=== PATIENT | female | born 1945 | race Caucasian/White ===

== ENCOUNTER → 2017-08-08 | Outpatient (CLI) | payer MEDICARE ==
[~2017-08-08] MED LIST: CALC600T; CHOL2000; CLN.1T; ESTR0.7510; HYDR12.570; LISI20TA; PARO20TA57; PRAV40TA
--- NOTE | 2017-08-08 13:36 | Diagnostic Imaging Report ---
CLINICAL INDICATION: Patient with carotid stenosis. COMPARISON: Ultrasound of the carotid arteries dated 11/03/2015. EXAMINATION: Real-time carotid Doppler duplex imaging is performed bilaterally. Peak systolic velocity, ICA/CCA peak systolic ratio, spectral analysis, and vascular morphology are studied. FINDINGS: ARTERY VELOCITY Right Left CCA 0.83 m/s 1.01 m/s ICA 1.03 m/s 0.99 m/s ECA 1.06 m/s 0.97 m/s ICA/CCA 1.2 1.0 VERT.ART Antegrade Antegrade There is no significant grayscale evidence of vascular stenosis. IMPRESSION: There is no grayscale or Doppler evidence of significant vascular stenosis. Dictated by: Dictated on workstation # [id number]
== END ==
LOC: RAD 11:56
PROVIDERS: ATTEND Family Medicine
DX: I65.23 Occlusion and stenosis of bilateral carotid arteries (principal)
CPT/HCPCS: 93880

== ENCOUNTER → 2018-05-16 | Outpatient (CLI) | payer MEDICARE ==
--- NOTE | 2018-05-16 11:29 | Diagnostic Imaging Report ---
PROCEDURE: US carotid duplex, bilateral. TECHNIQUE: Multiple real-time grayscale images were obtained over the carotid arteries in various projections, bilaterally. Additional spectral analysis and color Doppler duplex images were also obtained. INDICATION: Carotid artery stenosis. Parameters based on the consensus panel Prasad-Scale and Doppler ultrasound criteria published January 2003, Radiology, Volume 229. DOPPLER (peak systolic velocity M/S Right Left CCA .85 1.0 ICA Proximal .78 .48 ICA Mid .75 .48 ICA Distal .81 .81 RATIO .95 .68 ECA 1.2 .80 VERT .66 .82 FINDINGS: The previous carotid Doppler exam of 08/08/2017 failed to show any sign of a hemodynamically significant stenosis of the common or internal carotid arteries. On this exam, there is mild soft plaque formation in both carotid systems. The flow velocities still fail to show any sign of a hemodynamically significant stenosis of the common or internal carotid arteries. Both vertebral arteries were noted and there was antegrade flow bilaterally. IMPRESSION: There is still no evidence for hemodynamically significant stenosis of either carotid system. Dictated by: Dictated on workstation # [id number]
--- NOTE | 2018-05-16 19:29 | Diagnostic Imaging Report ---
EXAMINATION: Digital mammogram bilateral screening with 3D tomosynthesis and computer-aided detection (CAD) system. INDICATION: Screening. COMPARISON: This study was compared to the prior exams of 12/15/2012 and 05/05/2012. At this time, there are no current complaints. FINDINGS: The fibroglandular tissue in both breasts is heterogeneously dense. This does limit the sensitivity of this exam. In the interval since the prior study, the patient has undergone a stereotactic biopsy of the right breast. There is a stereotactic clip in the mid lateral aspect of the breast. The overall appearance of the breasts has not changed significantly otherwise. There is no primary or secondary sign of malignancy noted. IMPRESSION: 1. There is no evidence of malignancy. 2. There has been an interval stereotactic biopsy of the right breast. 3. The patient should have her annual bilateral screening mammogram on schedule in May of 2019. ACR BI-RADS Category 1: Negative. Result letter will be mailed to the patient. Note: At least 10% of breast cancer is not imaged by mammography. Dictated by: Dictated on workstation # [id number]
== END ==
LOC: RAD 08:35
PROVIDERS: ATTEND Family Medicine
DX: Z12.31 Encounter for screening mammogram for malignant neoplasm of breast (principal); I65.29 Occlusion and stenosis of unspecified carotid artery; R92.8 Other abnormal and inconclusive findings on diagnostic imaging of breast
CPT/HCPCS: 77067; 93880

== ENCOUNTER 2018-06-10 16:00 | Outpatient (CLI) | payer MEDICARE ==
[~2018-06-10] VITALS: Ht 157.5 cm; Wt 70.8 kg
[2018-06-11] MEDS ORDERED: TRIA1TAB3 PO (14:45)
[2018-06-11] MEDS ORDERED: ESTR0.5T PO (14:45)
[2018-06-11] MEDS ORDERED: FENO134C PO (14:45)
[2018-06-11] MEDS ORDERED: LEVO75TA PO (14:45)
[2018-06-11] MEDS ORDERED: PARO20TA5 PO (14:45)
[2018-06-11] MEDS ORDERED: METO-395 PO (14:45)
[2018-06-11] MEDS ORDERED: PRAV40TA2 PO (14:45)
== END 2018-06-10 16:30 | disposition home or self-care (01) ==
LOC: PREOP 16:00
PROVIDERS: ATTEND Surgery
DX: Z01.818 Encounter for other preprocedural examination (principal)

== ENCOUNTER 2018-06-16 06:55 | Day surgery (SDC) | payer MEDICARE ==
[~2018-06-16] VITALS: Ht 157.5 cm; Wt 70.8 kg
[~2018-06-16 06:55] MED LIST changes: +ESTR0.5T PO; +FENO134C PO; +LEVO75TA PO; +METO-395 PO; +PARO20TA5 PO; +PRAV40TA2 PO; +TRIA1TAB3 PO
[2018-06-16] MEDS ORDERED: LACTATED RINGERS 1,000 ML IV ONE (07:04)
[2018-06-16] MEDS ORDERED: PROPOFOL INJECTION 50 ML IV ONE (07:10)
[2018-06-16] MEDS ORDERED: LIDOCAINE PF 2% 5 ML (XYLOCAINE) VIAL ONE (07:10)
[2018-06-16] MEDS ORDERED: MIDAZOLAM 2 MG/2 ML (VERSED) VIAL ONE (07:10)
[2018-06-16] MEDS ORDERED: meTOprolol 5 MG/5 ML (LOPRESSOR) VIAL ONE (07:18)
[2018-06-16] MEDS ORDERED: LACTATED RINGERS 1,000 ML IV STA (07:31)
[2018-06-16 07:35] VITALS: BP 140/84
--- NOTE | 2018-06-16 08:20 | Progress Note-Pre Operative ---
Pre-Operative Progress Note H&P Reviewed The H&P was reviewed, patient examined and no changes noted. Time Seen by Provider: 08:11 Date H&P Reviewed: Jun 16, 2018 Time H&P Reviewed: 08:12 Pre-Operative Diagnosis: screening colonoscopy DL CRUZ DO Jun 16, 2018 08:20
--- NOTE | 2018-06-16 08:41 | Progress Note-Post Operative ---
Post-Operative Progess Note Surgeon (s)/Rail Director (s) Surgeon DL CRUZ DO Rail Director: none Pre-Operative Diagnosis screening colonoscopy Post-Operative Diagnosis Internal Hemorrhoids Procedure & Operative Findings Date of Procedure 06/16/18 Procedure Performed/Findings Colonoscopy Anesthesia Type IV sedation by AVIATION MAINTENANCE INSTRUCTOR Estimated Blood Loss Estimated blood loss (mL): none Specimens/Packing Specimens Removed none DL CRUZ DO Jun 16, 2018 08:41
--- NOTE | 2018-06-16 08:42 | Endoscopy Discharge Instruct ---
Endo Procedure/Findings Findings 1.: Internal Hemorrhoids Discharge Instructions - Activity: You might feel a little sleepy until tomorrow. This is due to the medicine you received to relax you. Until tomorrow, you should: NOT drive a car, operate machinery or power tools. NOT drink any alcoholic beverages. NOT make any important decisions or sign importortant papers. Do not return to work until tomorrow, unless otherwise instructed. Resume previous activities tomorrow. Diet: Start by taking liquids. If you tolerate liquids, advance to solid food. Make an appointment to see me in one week Instructions: 1.: Colonscopy in 10 years Notify Physician - If you experience excessive bleeding, unusual abdominal pain, fever, or chest pain, contact your doctor immediately. Follow-Up: - I have received and understand the above instructions and will call my doctor if I have any further questions. Patient Signature Date Nurse Signature Other (Relationship) DL CRUZ DO Jun 16, 2018 08:42
[2018-06-16 08:55] VITALS: BP 140/84
[2018-06-16 09:25] VITALS: BP 143/79
[2018-06-16 09:36] VITALS: BP 143/79
--- NOTE | 2018-06-16 14:32 | Anesthesia-General Post-Op ---
MAC Patient Condition Mental Status/LOC: Same as Preop Cardiovascular: Satisfactory Nausea/Vomiting: Absent Respiratory: Satisfactory Pain: Controlled Complications: Absent Post Op Complications Complications None Follow Up Care/Instructions Patient Instructions None needed. Anesthesiology Discharge Order Discharge Order Patient is doing well, no complaints, stable vital signs, no apparent adverse anesthesia problems. No complications reported per nursing. JANINA KUMARI CRNA Jun 16, 2018 14:32
--- NOTE | 2018-06-17 04:52 | OPERATIVE REPORT ---
DATE OF SERVICE: 06/16/2018 PREOPERATIVE DIAGNOSIS: Screening colonoscopy. POSTOPERATIVE DIAGNOSIS: Internal hemorrhoids. PROCEDURE: Colonoscopy. SURGEON: Alvino Machado DO. SHELTERED WORKSHOP EXECUTIVE DIRECTOR: None. ANESTHESIA: IV sedation by the WAFER PRODUCTION WORKER. SPECIMENS: None. BLOOD LOSS: None. FLUIDS: Per anesthesia. POSTOPERATIVE CONDITION: Stable. INDICATION FOR PROCEDURE: The patient is a 73-year-old female who has never had a colonoscopy, needed one for screening. FINDINGS: The patient had some very small internal hemorrhoids, but no other obvious pathology seen. PROCEDURE NOTE: After informed consent was obtained, the patient was brought to the endoscopy suite and placed in the left lateral decubitus position. She was administered IV sedation by WAFER PRODUCTION WORKER who then monitored her vitals the entire time, heart rate, blood pressure and pulse ox and the scope was inserted up from the rectum all the way to 150 cm to the cecum, took a picture of appendiceal orifice, noted the ileocecal valve and then slowly withdrew the scope insufflating to look circumferentially at the nicholas looking at the cecum up the ascending colon to the hepatic flexure, then down the transverse colon, the splenic flexure, into the descending colon and finally down to the sigmoid and into the rectum, retroflexed in the rectal vault, saw some minimal internal hemorrhoids, took a picture of this and then removed the scope. The patient tolerated the procedure and she was recovered in the endoscopy suite. Job ID: [id number] DocumentID: [id number] Dictated Date: 06/16/2018 18:30:34 Psychiatric Lpn Date: 06/17/2018 04:52:22 Dictated By: ALVINO MACHADO DO
== END 2018-06-16 09:35 | disposition home or self-care (01) ==
LOC: ENDO 06:55
PROVIDERS: ATTEND Surgery
DX: Z12.11 Encounter for screening for malignant neoplasm of colon (principal); K64.8 Other hemorrhoids; I10 Essential (primary) hypertension; F41.9 Anxiety disorder, unspecified; F32.9 Major depressive disorder, single episode, unspecified; Z86.73 Personal history of transient ischemic attack (TIA), and cerebral infarction without residual deficits; Z79.899 Other long term (current) drug therapy

== ENCOUNTER → 2020-05-31 | Outpatient (CLI) | payer MEDICARE ==
[~2020-05-31] MED LIST changes: +ASPI-999 PO; -METO-395 PO; +MTP100TCR PO; +MV-M1TAB57 PO
--- NOTE | 2020-05-31 13:33 | Diagnostic Imaging Report ---
INDICATION: Routine screening. COMPARISON: 05/16/2018. TECHNIQUE: 2D and 3D bilateral screening mammography was performed with CAD. FINDINGS: Both breasts are heterogeneously dense, limiting the sensitivity of mammography. A biopsy marker clip in the right breast is again noted. Overall parenchymal pattern is stable. No mass or malignant appearing microcalcifications are seen. There are scattered benign calcifications present. The axillae are unremarkable. IMPRESSION: No mammographic features suspicious for malignancy are identified. ACR BI-RADS Category 2: Benign findings. Result letter will be mailed to the patient. Note: At least 10% of breast cancer is not imaged by mammography. Dictated by: Dictated on workstation # [id number]
== END ==
LOC: RAD 10:54
PROVIDERS: ATTEND Nurse Practitioner Family
DX: Z12.31 Encounter for screening mammogram for malignant neoplasm of breast (principal)
CPT/HCPCS: 77063; 77067

== ENCOUNTER 2020-06-06 05:36 | Outpatient (RCR) | payer MEDICARE ==
[2020-06-01 10:14] VITALS: BP 155/74
[2020-06-01 11:07] LABS: BASOPHILS % (AUTO) 1 % (0-10); EOSINOPHILS # (AUTO) 0.1 10^3/uL (0.0-0.3); EOSINOPHILS % (AUTO) 3 % (0-10); HEMATOCRIT 38 % (35-52); LYMPHOCYTES # (AUTO) 0.9 10^3/uL (1.0-4.0); LYMPHOCYTES % (AUTO) 31 % (12-44); MEAN CORPUSCULAR HEMOGLOBIN 29 pg (25-34); MEAN CORPUSCULAR HGB CONC 34 g/dL (32-36); MEAN CORPUSCULAR VOLUME 86 fL (80-99); MEAN PLATELET VOLUME 10.4 fL (9.0-12.2); MONOCYTES # (AUTO) 0.3 10^3/uL (0.0-1.0); MONOCYTES % (AUTO) 10 % (0-12); NEUTROPHILS # (AUTO) 1.7 10^3/uL (1.8-7.8); NEUTROPHILS % (AUTO) 56 % (42-75); PLATELET COUNT 213 10^3/uL (130-400)
[2020-06-01 11:22] LABS: PROTHROMBIN TIME PATIENT 13.3 SEC (12.2-14.7)
[2020-06-01 11:29] LABS: ALBUMIN 4.1 GM/DL (3.2-4.5); BILIRUBIN,TOTAL 0.5 MG/DL (0.1-1.0); CREATININE SERUM 1.03 MG/DL (0.60-1.30); TOTAL PROTEIN 6.8 GM/DL (6.4-8.2)
[2020-06-01 11:31] LABS: BILIRUBIN,URINE NEGATIVE (NEGATIVE); CLARITY,URINE CLEAR; COLOR,URINE YELLOW; GLUCOSE, URINE (UA) NEGATIVE (NEGATIVE); KETONES,URINE NEGATIVE (NEGATIVE); LEUKOCYTE ESTERASE ,URINE 2+ (NEGATIVE); NITRITE,URINE NEGATIVE (NEGATIVE); PROTEIN,URINE NEGATIVE (NEGATIVE)
--- NOTE | 2020-06-01 11:34 | Diagnostic Imaging Report ---
INDICATION: Preop knee surgery. COMPARISON: 10/28/2015. FINDINGS: PA and lateral views show the lungs to be clear. The heart is not enlarged. No pneumothorax or pleural effusion. No bony abnormalities. IMPRESSION: Normal PA and lateral chest. Dictated by: Dictated on workstation # [id number]
[2020-06-01 11:41] LABS: ERYTHROCYTE SEDIMENTATION RATE 8 MM/HR (0-30)
[2020-06-01 11:46] LABS: BACTERIA,URINE FEW /HPF; RBC,URINE 0-2 /HPF
[~2020-06-06] VITALS: Ht 158.5 cm; Wt 82.3 kg
== END 2020-06-06 13:17 | disposition home or self-care (01) ==
LOC: PREOP 05:36
PROVIDERS: ATTEND Orthopaedic Surgery
DX: Z01.812 Encounter for preprocedural laboratory examination (principal); M17.11 Unilateral primary osteoarthritis, right knee
CPT/HCPCS: 36415; 71046; 80053; 81000; 85025; 85610; 85652; 86850; 86900; 86901; 87081; 87088; 87635; 93005

== ENCOUNTER 2020-06-08 06:04 | Inpatient (IN) | payer MEDICARE ==
--- NOTE | 2020-06-01 20:09 | HISTORY AND PHYSICAL ---
DATE OF SERVICE: ADMISSION HISTORY AND PHYSICAL DATE OF ADMISSION: 06/08/2020. This will be for inpatient admission on 06/08/2020 for right total knee arthroplasty. The patient will require regular inpatient admission for comorbidities, pain management, and need for physical therapy. HISTORY OF PRESENT ILLNESS: The patient is a 75-year-old female with complaints of progressively worsening right knee pain. Radiographs reveal severe medial and patellofemoral arthrosis with complete loss of joint space. She underwent an arthroscopy in the past. She has also undergone injections, but reports increasing pain and activity limitations and because of this, has elected to proceed with total knee arthroplasty. REVIEW OF SYSTEMS: No chest pain, no shortness of breath, and no dysuria. PAST MEDICAL HISTORY: Hypertension, hyperlipidemia, and hypothyroidism. PAST SURGICAL HISTORY: Hysterectomy, cholecystectomy, cleft palate, eye and left knee arthroscopy. FAMILY HISTORY: Noncontributory. PRIMARY CARE PROVIDER: Dr. Ramirez. MEDICATIONS: Levothyroxine, paroxetine, fenofibrate, triamterene, metoprolol, pravastatin, estradiol, aspirin and hydrocodone. ALLERGIES: No known drug allergies. SOCIAL HISTORY: The patient drinks alcohol occasionally. Denies tobacco use. PHYSICAL EXAMINATION: GENERAL: The patient is a well-developed, well-nourished, in no acute distress. HEENT: Normocephalic and atraumatic. Pupils are equal, round, and reactive to light. Oropharynx is clear. NECK: Supple and no lymphadenopathy. LUNGS: Clear to auscultation bilaterally. HEART: Regular rate and rhythm. ABDOMEN: Soft, nontender, and nondistended. EXTREMITIES: The right knee demonstrates varus alignment. She ambulates with an antalgic gait. She is tender along her medial joint line. She has pain medially with Timmy's. She has patellofemoral crepitus and pain with patellar loading. Range of motion is 0/2/120. IMPRESSION: Right knee osteoarthritis, unresponsive to conservative measures. PLAN: Right total knee arthroplasty. The risks, benefits, options, ramifications and recovery were discussed at length with the patient. She understands and wishes to proceed. Job ID: [id number] DocumentID: [id number] Dictated Date: 05/30/2020 16:40:59 Dialysis Nurse Date: 05/30/2020 17:55:39 Dictated By: ROB JUDD MD
[2020-06-08] VITALS (14 sets, daily range): BP systolic 91–187; BP diastolic 54–96
[~2020-06-08] VITALS: Ht 158 cm; Wt 82.3 kg
[2020-06-08] MEDS ORDERED: CEFUROXIME INJECTION 1,500 MG in WATER (STERILE) FOR INJECTION 15 ML IV ONE (06:15)
[2020-06-08] MEDS ORDERED: fentaNYL INJ 100 MCG/2 ML AMP ONE (06:27)
[2020-06-08] MEDS ORDERED: MIDAZOLAM 2 MG/2 ML (VERSED) VIAL ONE (06:27)
[2020-06-08] MEDS ORDERED: proPOfol 200 MG/20 ML (DIPRIVAN) VIAL IV ONE (06:58)
[2020-06-08] MEDS ORDERED: ONDANSETRON 4 MG/2 ML (SDV) Z0FRAN ONE (06:58)
[2020-06-08] MEDS ORDERED: SEVOFLURANE (ULTANE) 15 ML INHAL SOLN ONE ×5 (06:58→09:00)
[2020-06-08] MEDS ORDERED: LIDOCAINE PF 2% 5 ML (XYLOCAINE) VIAL ONE ×2 (06:58)
[2020-06-08] MEDS ORDERED: BUPIVACAINE 0.5% 30 ML (SENSORCAINE) VIAL ONE (06:58)
[2020-06-08] MEDS: LACTATED RINGERS 1,000 ML IV PRN ×2 (07:03→07:40)
[2020-06-08] MEDS ORDERED: ONDANSETRON 4 MG/2 ML (SDV) Z0FRAN IVP PRN ×2 (07:15→09:30)
[2020-06-08] MEDS ORDERED: ACETAMINOPHEN 325 MG TABLET PO PRN (07:15)
[2020-06-08] MEDS ORDERED: diphenhydrAMINE 50 MG/ML INJ (BENADRYL) IVP PRN (07:15)
--- NOTE | 2020-06-08 07:28 | Progress Note-Pre Operative ---
Pre-Operative Progress Note H&P Reviewed The H&P was reviewed, patient examined and no changes noted. Date Seen by Provider: Jun 08, 2020 Time Seen by Provider: 07:20 Date H&P Reviewed: Jun 08, 2020 Time H&P Reviewed: 07:11 Pre-Operative Diagnosis: right knee primary osteoarthritis ROB JUDD MD Jun 08, 2020 07:28
--- NOTE | 2020-06-08 07:29 | Progress Note-Post Operative ---
Post-Operative Progess Note Surgeon (s)/Financial Auditor (s) Surgeon ROB JUDD MD Financial Auditor: Дмитрий Licona Pre-Operative Diagnosis right knee primary osteoarthritis Post-Operative Diagnosis right knee primary osteoarthritis Procedure & Operative Findings Date of Procedure 06/08/20 Procedure Performed/Findings right total knee arthroplasty Anesthesia Type GETA Estimated Blood Loss Estimated blood loss (mL): minimal Specimens/Packing Specimens Removed none Packing: none ROB JUDD MD Jun 08, 2020 07:29
[2020-06-08] MEDS ORDERED: INTRA-ARTICULAR IU ONE ×5 (07:30)
--- NOTE | 2020-06-08 07:32 | D/C HH Face to Face Order ---
D/C Face to Face Orders Reconcile Patient Problems Problems Reviewed?: Yes Instructions for Patient Via [facility], Patient Instructions/FollowUp: three weeks Physician to follow Patient: three weeks Discharge Diet for Home: Regular Diet Patient Data-Allergies,Ht & Wt Patient Allergies: Coded Allergies: No Known Drug Allergies (Verified , 01/10/09) Height (Feet): 5 Height (Inches): 2.00 Weight (Pounds): 156 Weight (Ounces): 0.0 Home Health Need/Face to Face Date of Face to Face: Jun 08, 2020 Clinical Findings: Instability, Muscle weakness, Pain with ambulation, Unsteady gait I have seen Pt [id number]: Yes Discharged To: Home Diagnosis/Conditions: right total knee arthroplasty Patient is Homebound due to: Muscle weakness, Pain w/ambulation Homebound Status Due to the above stated illness, injury or surgical procedure (medical condition or diagnosis) and associated clinical findings, the patient is homebound because of his/her inability to leave home except with aid of a supportive device and/or person AND leaving the home requires a considerable and taxing effort or is medically contraindicated. Pt req the following assistanc: [facility] Nursing Orders Home Health Services Order: Physical Therapy-Evaluate & Treat DC right knee daquan and apply steri strips 06/22/20 Home Health Infusion Therapy Line Start Date: Jun 08, 2020 Therapy Orders Therapy Orders: Physical Therapy, PT to assess for OT Therapy Specific Orders: Eval assistive deivces, Teach enviro modifications/safety, Gait training, Increase strength/endurance, Provider maintenance therapy, Restore ROM Certify Stmt I certify that this patient is under my care and that I, a nurse practitioner or a physician; a physiotherapy assistant working with me, had a face to face encounter that - meets the physician face to face encounter requirements with this patient as dated. ROB JUDD MD Jun 08, 2020 07:32
[2020-06-08] MEDS ORDERED: TRANEXAMIC ACID 100 MG/ML 10 ML INJECTION ONE (07:37)
[2020-06-08] MEDS ORDERED: RT-ALBUTEROL SULF 2.5 MG/3 ML PRE-MIX VIAL ONE (09:05)
[2020-06-08] MEDS ORDERED: LABETALOL HCL 20 MG/4 ML VIAL ONE (09:17)
[2020-06-08] MEDS ORDERED: LABETALOL HCL 100 MG/20 ML VIAL IV ONE (09:30)
[2020-06-08] MEDS ORDERED: HYDROmorphone 2 MG/ML VIAL (DILAUDID) IV ONE (09:30)
[2020-06-08] MEDS ORDERED: hydrALAZINE (APESOLINE) 20 MG/ML VIAL IV ONE (09:30)
[2020-06-08] MEDS ORDERED: morphine INJ 10 MG/ML 1ML (SYR OR VIAL) IVP ONE (09:30)
[2020-06-08] MEDS ORDERED: fentaNYL INJ 100 MCG/2 ML AMP IVP ONE (09:30)
[2020-06-08] MEDS ORDERED: MEPERIDINE (DEMEROL) INJ 50 MG/ML IVP ONE (09:30)
[2020-06-08] MEDS ORDERED: RT-ALBUTEROL/IPRATROPIUM 3 ML (DUONEB) VIAL INH ONE (09:30)
--- NOTE | 2020-06-08 09:39 | Diagnostic Imaging Report ---
INDICATION: Status post right knee replacement COMPARISON: None. FINDINGS: Two views of the right knee were obtained. Expected postoperative changes are seen from right knee total arthroplasty. Femoral and tibial components appear well-seated. There is no evidence of periprosthetic fracture. There is a small amount of subcutaneous emphysema in the soft tissues over the knee. Skin daquan are seen centrally over the anterior aspect of the knee. No unexpected radiopaque foreign bodies are identified. IMPRESSION: Expected postsurgical changes from right knee total arthroplasty, as described above. No unexpected radiopaque foreign bodies. Dictated by: Dictated on workstation # [id number]
--- NOTE | 2020-06-08 10:30 | Progress Note ---
Standard Progress Note Progress Notes/Assess & Plan Date Seen by a Provider: Jun 08, 2020 Time Seen by a Provider: 09:30 Progress/Assessment & Plan post op check no complaints radiographs--HW well positioned without fracture RLE--2 plus DP pulse with brisk cap refill. Intact DF and PF of toes and ankle with intact sensation to light touch throughout s/p RTKA mobilize as able ROB JUDD MD Jun 08, 2020 10:30
[2020-06-08] MEDS: NS IV 1000 ML 1,000 ML IV SCH ×2 (11:05→21:28)
[2020-06-08] MEDS: SENNA W/DOCUSATE (SENOKOT S) TABLET PO SCH ×2 (11:24→21:36)
--- NOTE | 2020-06-08 12:08 | OPERATIVE REPORT ---
DATE OF SERVICE: 06/08/2020 PREOPERATIVE DIAGNOSIS: Right knee primary osteoarthritis. POSTOPERATIVE DIAGNOSIS: Right knee primary osteoarthritis. PROCEDURE: Right total knee arthroplasty. SURGEON: Eduardo Judd MD VP OF GLOBAL MARKETING: Дмитрий Licona, who assisted throughout the procedure and closed the incision. ANESTHESIA: General endotracheal by Carey Salamanca CRNA. TOURNIQUET TIME: Approximately 60 minutes at 300 mmHg. ESTIMATED BLOOD LOSS: Minimal. DRAINS: None. COMPLICATIONS: None. POSTOPERATIVE PLAN: Routine total knee arthroplasty protocol. MATERIALS: Microport cemented size 3 femur, cemented size 3 tibia with a 12 mm insert and cemented size 32 patellar button. The patient was transferred to the recovery room awake and in stable condition. STATEMENT OF MEDICAL NECESSITY: The patient is a 75-year-old female with complaints of progressively worsening right knee pain. She has undergone treatment with injections, anti-inflammatories, rest and arthroscopy without relief. Radiographs revealed severe medial patellofemoral joint space narrowing. Due to functional impairment and failure to improve with conservative measures, the patient elected to proceed with surgical intervention. DESCRIPTION OF PROCEDURE: After risks and benefits of procedure were discussed and questions were answered, an informed consent was signed and placed on chart. The operative site was confirmed in the preoperative holding area initialed by the surgeon. The patient was then transferred to the operating room and after adequate levels of general endotracheal anesthetic were obtained, a timeout was called, confirming the operative site. The right lower extremity was prepped and draped in the usual sterile fashion with the leg elevated and the knee flexed. Tourniquet was inflated to 300 mmHg. A standard anterior approach was utilized. Hemostasis was obtained with cautery. Medial parapatellar arthrotomy was performed leaving 1 cm cuff on the patella for later reattachment. A portion of the fat pad was resected. A subperiosteal release was performed in the proximal medial tibia being careful to stay on the bony surface. The ACL was resected. Intramedullary guide was passed and the distal cutting block was placed. Distal cut was made and the femur was sized to a size 3. The 3 cutting block was placed parallel to the epicondylar axis and cuts were made from posterior to anterior. The subperiosteal release was then carefully performed in the posterior distal femur, being careful to stay on the bony surface. The intramedullary guide was then passed into the tibia. Cutting block was placed and drop tyler transected the intermalleolar axis and the cut was made. The 3 baseplate was placed. The drop tyler transected the intermalleolar axis. This was then prepared with a drill and keel punch. The trochlear cut was then made after placing the femoral trial and the patella was prepared by using the freehand technique and resecting 10 mm off the undersurface. The peg guide was placed and peg holes were drilled. The trials were inserted with 12 mm insert. Full extension was easily obtained, 120 degrees of flexion with gravity was easily obtained. The patella tracked well. There was no anterior/posterior laxity in flexion or extension. There was a trace varus laxity in full extension. No valgus laxity. The trials were removed. The joint was irrigated with pulse lavage. The periarticular block was placed in the posterior capsule, medial and lateral retinaculum extensor mechanism, subcutaneous tissues. The bone ends were irrigated and dried. Tibial baseplate was cemented into position. Excessive cement was removed. The superior surface was irrigated and dried. The polyethylene insert was placed. The distal femur was irrigated and dried and the femoral prosthesis was cemented into position. Excessive cement was removed. The undersurface of patella was irrigated and dried and the patellar button was cemented into position. Excessive cement was removed. The knee was held in full extension until the cement had cured. Once the cement had cured, the knee was taken through range of motion. Full extension was easily obtained degrees of flexion with gravity was easily obtained. The patella tracked well. There was no anterior/posterior or medial/lateral laxity in flexion or extension. The joint was further irrigated with pulse lavage. Arthrotomy was closed with #2 Tevdek in [id number] interrupted fashion. The knee was flexed. Patella tracked well with no undue tension noted at the repair site. Subcutaneous tissues were irrigated using a total of 6 liters throughout the procedure, 0 Vicryl was used to deep subcutaneous tissue, 2-0 Vicryl for the superficial subcutaneous tissue, daquan used on the skin. A soft dressing was applied. The tourniquet was deflated. The patient was transferred to the recovery room awake and in stable condition. Job ID: [id number] DocumentID: [id number] Dictated Date: 06/08/2020 09:10:30 Otolaryngology Rep Date: 06/08/2020 12:07:05 Dictated By: EDUARDO JUDD MD
[2020-06-08] MEDS: CEFUROXIME INJECTION 750 MG in WATER (STERILE) FOR INJECTION 10 ML IV SCH ×2 (15:22→23:38)
--- NOTE | 2020-06-08 15:40 | Physical Therapy Evaluation ---
PT Evaluation-General Medical Diagnosis Admission Date Jun 08, 2020 at 06:04 Medical Diagnosis: s/p (R) tka Onset Date: Jun 08, 2020 Therapy Diagnosis Therapy Diagnosis: decreased functional mobility Height/Weight Height (Feet): 5 Height (Inches): 2.00 Weight (Pounds): 156 Weight (Ounces): 0.0 Precautions Precautions/Isolations: Fall Prevention, Standard Precautions Weight Bear Status Right Lower Extremity: Right Weight Bearing/Tolerated Left Lower Extremity: Left Full Weight Bearing Referral Physician: FARAZ Warren Reason for Referral: Evaluation/Treatment Medical History Pertinent Medical History: HTN, Hypothroidism Additional Medical History hyperlipidemia, cholecystectomy, cleft palate Sx, eye Sx, (L) knee scope Current History Pt underwent (R) TKA this date. Reviewed History: Yes Social History Home: Single Level Current Living Status: Spouse Entry Into Home: Stairs Without Railing PT Steps Into Home: 2 Prior Prior Level of Function SCALE: Activities may be completed with or without assistive devices. 1-Ygrqetfwwf-epzloau completes the activity by him/herself with no assistance from a helper. 5-Set-up or Clean-up Assistance-helper sets up or cleans up; patient completes activity. [place] assists only prior to or following the activity. 4-Supervision or Touching Assistance-helper provides verbal cues and/or touching/steadying and/or contact guard assistance as patient completes activity. Assistance may be provided throughout the activity or intermittently. 3-Partial/Moderate Assistance-helper does LESS THAN HALF the effort. [place] lifts, holds or supports trunk or limbs, but provides less than half the effort. 2-Substantial/Maximal Assistance-helper does MORE THAN HALF the effort. [place] lifts or holds trunk or limbs and provides more than half the effort. 6-Oxfsapvoc-xjmzfa does ALL the effort. Patient does none of the effort to complete the activity. Or, the assistance of 2 or more helpers is required for the patient to complete the activity. If activity was not attempted, code reason: 7-Patient Refused. 9-Not Applicable-not attempted and the patient did not perform the activity before the current illness, exacerbation or injury. 10-Not Attempted due to Environmental Limitations-(lack of equipment, weather restraints, etc.). 88-Not Attempted due to Medical Conditions or Safety Concerns. Bed Mobility: 6 Transfers (B,C,W/C): 6 Gait: 6 Stairs: 6 Wheelchair Mobility: 9 Indoor Mobility (Ambulation): Independent Stairs: Independent Prior Devices Use: None PT Evaluation-Current Subjective Pt in bed, agreeable. No pain reported upon PT arrival. Pt/Family Goals Home Objective Patient Orientation: Person, Place, Time, Situation Attachments: SCD's, Polar Pack, IV ROM/Strength ROM Upper Extremities WFL for mobility ROM Lower Extremities (L) grossly WFL for functional mobility. (R) knee grossly +10-90 degrees Strength Upper Extremities WFL for mobility Strength Lower Extremities (+) SLR with lag on (R) (L) grossly WFL for mobility Integumentary/Posture Integumentary See nurses' notes Sensory Vision: Functional Hearing: Functional Transfers Roll Left to Right (QC): 6 Sit to Lying (QC): 6 Lying to Sitting/Side of Bed(Q: 6 Sit to Stand (QC): 4 Stood EOB with CGA to FWW. 3 sidesteps to HOB with CGA Gait Does the Patient Walk?: Yes Mode of Locomotion: Walk Anticipated Mode of Locomotion: Walk Wheelchair Training Does the Pt Use a Wheelchair?: No Balance Sitting Static: Normal Sitting Dynamic: Normal Standing Static: Good Standing Dynamic: Fair Treatment Eval. CPM placed 0-45 degrees, good fit achieved. Assessment/Needs Pt would benefit from skilled PT to improve (R) knee functional ROM and strength and increase (I) with functional mobility for safe return home. 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 Time Frame: Jun 15, 2020 Roll Left & Right (QC): 6 Sit to Lying (QC): 6 Lying-Sitting on Side/Bed(QC): 6 Sit to Stand (QC): 6 Chair/Bpt-ri-Ekgnh Xfer(QC): 6 Toilet Transfer (QC): 6 Car Transfer (QC): 6 Does the Patient Walk: Yes Walk 10 feet (QC): 6 Walk 50ft with 2 Turns (QC): 6 Walk 150 ft (QC): 6 Walking 10ft on Uneven Surface: 6 1 Step (curb) (QC): 6 4 Steps (QC): 4 12 Steps (QC): 9 Picking up an Object (QC): 6 Does the Pt use WC or Scooter?: No Wheel 50 feet with 2 turns (QC: 9 Type: N/A Wheel 150 feet: 9 Type: N/A PT LTGs established to allow safe return home with spouse PT Plan Problem List Problem List: Activity Tolerance, Functional Strength, Safety, Balance, Gait, Transfer, Bed Mobility, ROM Treatment/Plan Treatment Plan: Continue Plan of Care Treatment Plan: Bed Mobility, Education, Functional Activity April, Functional Strength, Gait, Safety, Therapeutic Exercise, Transfers Treatment Duration: Jun 15, 2020 Frequency: 11 times per week Estimated Hrs Per Day: .5 hour per day Patient and/or Family Agrees t: Yes Safety Risks/Education Patient Education: Reviewed Precautions, Correct Positioning Teaching Recipient: Patient Teaching Methods: Discussion Response to Teaching: Verbalize Understanding PT POC, positioning to promote TKE, use of CPM Discharge Recommendations Therapy Discharge Recommendati: Home & Family, Post Acute PT Barriers to Progress None Time/GCodes Time In: 1329 Time Out: 1350 Total Billed Treatment Time: 21 Total Billed Treatment 1, EVLOWC, CPM, PADS LIONEL MCQUEEN DPRaza Jun 08, 2020 15:40
[2020-06-08] MEDS: oxyCODONE/APAP 5/325MG (PERCOCET 5) TABLET PO PRN (17:00)
[2020-06-08] MEDS: morphine PCA 100 MG/100 ML BAG IV PRN ×3 (19:55→21:28)
[2020-06-09 00:51] VITALS: BP 131/62
[2020-06-09] MEDS: NS IV 1000 ML 1,000 ML IV SCH ×2 (01:14→13:41)
[2020-06-09 04:44] VITALS: BP 124/60
[2020-06-09] MEDS: MULTIVIT W/MINERALS TAB (THERAGRAN M) PO SCH (05:37)
[2020-06-09 06:11] LABS: HEMOGLOBIN 9.6 g/dL (11.5-16.0); MEAN PLATELET VOLUME 10.4 fL (9.0-12.2); WHITE BLOOD COUNT 6.8 10^3/uL (4.3-11.0)
--- NOTE | 2020-06-09 06:49 | Anesthesia-General Post-Op ---
General Patient Condition Mental Status/LOC: Same as Preop Cardiovascular: Satisfactory Nausea/Vomiting: Absent Respiratory: Satisfactory Pain: Controlled Complications: Absent Post Op Complications Complications None Follow Up Care/Instructions Patient Instructions None needed. Anesthesia/Patient Condition Patient Condition Patient is doing well, no complaints, stable vital signs, no apparent adverse anesthesia problems. No complications reported per nursing. JANNIA KUMARI CRNA Jun 09, 2020 06:49
[2020-06-09 08:00] VITALS: BP 129/75
--- NOTE | 2020-06-09 08:02 | Progress Note ---
Standard Progress Note Progress Notes/Assess & Plan Date Seen by a Provider: Jun 09, 2020 Time Seen by a Provider: 08:01 Progress/Assessment & Plan post op check no complaints radiographs--HW well positioned without fracture RLE--2 plus DP pulse with brisk cap refill. Intact DF and PF of toes and ankle with intact sensation to light touch throughout s/p RTKA mobilize as able Final Diagnosis patient is doing well Vital Signs Date Time Temp Pulse Resp B/P (MAP) Pulse Ox O2 Delivery O2 Flow Rate FiO2 06/09/20 04:44 36.3 73 18 124/60 (81) 95 Nasal Cannula 2.00 06/09/20 00:51 36.6 80 18 131/62 (85) 96 Nasal Cannula 2.00 06/08/20 20:35 Nasal Cannula 2.00 06/08/20 20:35 Nasal Cannula 2.00 06/08/20 20:24 36.4 69 18 109/56 (73) 94 Nasal Cannula 2.00 06/08/20 19:55 36.0 06/08/20 18:05 95 Nasal Cannula 2.00 06/08/20 18:00 89 Room Air 06/08/20 16:30 36.3 77 20 145/62 (89) 95 Room Air 06/08/20 15:37 Room Air 06/08/20 12:00 36.2 79 16 141/66 (91) 100 Nasal Cannula 2.00 06/08/20 10:45 77 141/64 (89) 95 Nasal Cannula 2.00 06/08/20 10:20 36.5 77 16 91/54 (66) 97 Nasal Cannula 2.00 06/08/20 10:10 36.2 20 133/77 (95) 96 Nasal Cannula 2 06/08/20 10:10 Nasal Cannula 2 06/08/20 10:00 18 142/80 (100) 96 Nasal Cannula 2 06/08/20 09:55 Nasal Cannula 3 06/08/20 09:50 14 147/83 (104) 96 Nasal Cannula 3 06/08/20 09:40 16 155/78 (103) 94 OxyMask 4 06/08/20 09:40 OxyMask 4 06/08/20 09:30 16 169/83 (111) 97 OxyMask 8 06/08/20 09:20 OxyMask 10 06/08/20 09:20 14 187/92 (123) 91 OxyMask 10 06/08/20 09:10 36.1 16 180/96 (124) 94 OxyMask 15 06/08/20 09:09 36.1 16 180/96 (124) 94 OxyMask 15 06/08/20 09:09 OxyMask 15 I & O 06/09/20 06:59 Intake Total 2915 ml Output Total 410 ml Balance 2505 ml Laboratory Tests Test 06/09/20 05:58 Range/Units White Blood Count 6.8 4.3-11.0 10^3/uL Red Blood Count 3.25 L 3.80-5.11 10^6/uL Hemoglobin 9.6 L 11.5-16.0 g/dL Hematocrit 28 L 35-52 % Mean Corpuscular Volume 87 80-99 fL Mean Corpuscular Hemoglobin 30 25-34 pg Mean Corpuscular Hemoglobin Concent 34 32-36 g/dL Red Cell Distribution Width 13.1 10.0-14.5 % Platelet Count 175 130-400 10^3/uL Mean Platelet Volume 10.4 9.0-12.2 fL Creatinine 1.11 0.60-1.30 MG/DL RLE--dressing intact. No calf tenderness. neg \Buck's able to perform SLR s/p RTKA doing very well PT/OT likely DC tomorrow ROB JUDD MD Jun 09, 2020 08:02
[2020-06-09] MEDS: oxyCODONE/APAP 5/325MG (PERCOCET 5) TABLET PO PRN ×7 (08:20→22:33)
[2020-06-09] MEDS: ASPIRIN E.C. 81 MG (ECOTRIN) TAB PO SCH (08:20)
[2020-06-09] MEDS: ENOXAPARIN 30 MG/0.3 ML (LOVENOX) SYR SC SCH ×2 (08:20→19:47)
[2020-06-09] MEDS: SENNA W/DOCUSATE (SENOKOT S) TABLET PO SCH ×2 (08:20→19:47)
[2020-06-09] MEDS ORDERED: LEVOTHYROXINE 75 MCG (LEVOTHROID) TABLET PO NR (08:45)
--- NOTE | 2020-06-09 09:29 | Progress Note - Hospitalist ---
PARTH HADDAD MED STUDENT 06/09/20 0929: Subjective HPI/CC On Admission Date Seen by Provider: Jun 09, 2020 Time Seen by Provider: 08:15 Fwup s/p right total knee arthroplasty Subjective/Events-last exam Pt resting comfortably in bed with ice machine running over right knee. She denies shortness of breath and is pain free at rest. Pt states pain increases when she ambulates but it is tolerable. She had urinary retention last night requiring straight cath but is able to go on her own today. Discussed possibility of being discharged today or tomorrow vs going to rehab pending her strength and comfort level with returning home. Objective Exam Vital Signs Vital Signs Date Time Temp Pulse Resp B/P (MAP) Pulse Ox O2 Delivery O2 Flow Rate FiO2 06/09/20 08:07 Nasal Cannula 2.00 06/09/20 08:00 36.2 87 20 129/75 (93) 93 Capillary Refill : Less Than 3 Seconds General Appearance: No Apparent Distress, WD/WN Respiratory: Chest Non Tender, Lungs Clear, Normal Breath Sounds, No Accessory Muscle Use, No Respiratory Distress Cardiovascular: Regular Rate, Rhythm, No Edema, No Gallop Gastrointestinal: Normal Bowel Sounds, Non Tender Extremity: Normal Capillary Refill, Non Tender, No Calf Tenderness, No Pedal Edema, Other (ice machine on R knee; distal pulses 2/4 b/l) Neurologic/Psychiatric: Alert, Oriented x3, Normal Mood/Affect Skin: Normal Color, Warm/Dry Results/Procedures Lab Laboratory Tests 06/09/20 05:58 Patient resulted labs reviewed. Assessment/Plan Assessment and Plan Assess & Plan/Chief Complaint 1. S/p right total knee arthroplasty -Continue pain medications as needed and ice machine -Ambulate and pt as much as tolerated -Encouraged use of I/S -Lovenox DVT prophylaxis -Potentially d/c tomorrow 2. HTN -Restart Metoprolol 100 mg PO 3. Hypothyroidism -Restart Levothyroxine 75 mcg 4. Hyperlipidemia -On Fenofibrate and Pravastatin at home; not restarted yet 5. Anxiety and depression -Restart Paroxetine 20 mg Diagnosis/Problems Diagnosis/Problems (1) Osteoarthritis of right knee Status: Chronic (2) HTN (hypertension) Status: Chronic (3) Hyperlipidemia Status: Chronic (4) Hypothyroidism Status: Chronic (5) S/P arthroscopy of right knee Status: Acute (6) Anxiety and depression Status: Chronic PHI GARDNER DO 06/09/201907: Supervisory-Addendum Brief Verification & Attestation Participated in pt care: history, physical Personally performed: exam, supervision of care Care discussed with: Medical Student Procedures: n/a Results interpretation: Verified all documentation This is a 75 yo female with a history of HTN, Hyperlipidemia, Anxiety and previous TIA who underwent right TKA by Dr. Hatch yesterday. I am asked to consult for medical management. As above, the patient is resting comfortably in bed with pain well controlled. She is in good spirits and hopeful that she can go home tomorrow but she her will likely not be able to assist her at h ome very well due to his own health issues. We did discuss possible rehab if she felt that was necessary but she will see how she does today and plans to discuss that more with me tomorrow. Her right knee wound is dry with a dressing and CARMEN hose in place. She has no calf pain or swelling. Assessment, care and plans as above. PARTH HADDAD MED STUDENT Jun 09, 2020 09:29 PHI GARDNER DO Jun 09, 2020 19:08
--- NOTE | 2020-06-09 09:41 | Physical Therapy Daily Note ---
PT Daily Note-Current Subjective Patient willingly consented to PT. Patient rates R knee pain 5/10. Appearance Patient left sitting upright in chair, with call button within reach and tray table positioned in front. Mental Status Patient Orientation: Normal For Age Attachments: Polar Pack, IV Transfers SCALE: Activities may be completed with or without assistive devices. 9-Ieierdoxjl-stjvhvw completes the activity by him/herself with no assistance from a helper. 5-Set-up or Clean-up Assistance-helper sets up or cleans up; patient completes activity. [place] assists only prior to or following the activity. 4-Supervision or Touching Assistance-helper provides verbal cues and/or touching/steadying and/or contact guard assistance as patient completes activity. Assistance may be provided throughout the activity or intermittently. 3-Partial/Moderate Assistance-helper does LESS THAN HALF the effort. [place] lifts, holds or supports trunk or limbs, but provides less than half the effort. 2-Substantial/Maximal Assistance-helper does MORE THAN HALF the effort. [place] lifts or holds trunk or limbs and provides more than half the effort. 3-Fbhsvpzbf-ycbrup does ALL the effort. Patient does none of the effort to complete the activity. Or, the assistance of 2 or more helpers is required for the patient to complete the activity. If activity was not attempted, code reason: 7-Patient Refused. 9-Not Applicable-not attempted and the patient did not perform the activity before the current illness, exacerbation or injury. 10-Not Attempted due to Environmental Limitations-(lack of equipment, weather restraints, etc.). 88-Not Attempted due to Medical Conditions or Safety Concerns. Roll Left & Right (QC): 6 Sit to Lying (QC): 6 Lying to Sitting/Side of Bed(Q: 6 Sit to Stand (QC): 4 Chair/Cou-bj-Wsudo Xfer(QC): 4 SBA x1 with sit <-> stand transfer. Patient able to bear weight through R leg without difficulty. Weight Bearing Right Lower Extremity: Right Weight Bearing/Tolerated Left Lower Extremity: Left Full Weight Bearing Gait Training Does the Patient Walk?: Yes Distance: 300' Walk 10 feet (QC): 4 Walk 50 ft with 2 Turns(QC): 4 Walk 150 ft (QC): 4 Gait Assistive Device: FWW SBA x1 utilized with ambulation, secondary to first time patient ambulated. Patient was very steady with gait, showed reciprocal gait pattern and did not demonstrate antalgic gait pattern. Wheelchair Training Does the Pt Use a Wheelchair?: No Exercises Supine Ex: Glut sets, Heel Slides, Straight leg raise Supine Reps: 15 Seated Therapy Exercises: Ankle pumps, Long arc quads Seated Reps: 15 Assessment Current Status: Excellent Progress Patient demonstrates fluid motion with knee mobility with no hesitation to movement secondary to pain. Patient will benefit from continued PT to improve functional mobility to maintain safety and obtain PLOF when returning home with . Plan dismissal in a.m. to home with spouse and home health therapy. 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 Goals Time Frame: Jun 15, 2020 Roll Left & Right (QC): 6 Sit to Lying (QC): 6 Lying-Sitting on Side/Bed(QC): 6 Sit to Stand (QC): 6 Chair/Pxk-xf-Teucc Xfer(QC): 6 Toilet Transfer (QC): 6 Car Transfer (QC): 6 Does the Patient Walk: Yes Walk 10 feet (QC): 6 Walk 50ft with 2 Turns (QC): 6 Walk 150 ft (QC): 6 Walking 10ft on Uneven Surface: 6 1 Step (curb) (QC): 6 4 Steps (QC): 4 12 Steps (QC): 9 Picking up an Object (QC): 6 Does the Pt use WC or Scooter?: No Wheel 50 feet with 2 turns (QC: 9 Type: N/A Wheel 150 feet: 9 Type: N/A PT Plan Problem List Problem List: Balance, Gait, Transfer Treatment/Plan Treatment Plan: Continue Plan of Care Treatment Plan: Bed Mobility, Education, Functional Activity April, Functional Strength, Gait, Safety, Therapeutic Exercise, Transfers Treatment Duration: Jun 15, 2020 Frequency: 11 times per week Estimated Hrs Per Day: .5 hour per day Patient and/or Family Agrees t: Yes Discharge Recommendations Therapy Discharge Recommendati: Home & Family, Post Acute PT Time/GCodes Time In: 809 Time Out: 08 Total Billed Treatment Time: 25 Total Billed Treatment 1 visit: GT: 10' EX: 15' LATASHA VÁSQUEZ PT Jun 09, 2020 09:40
[2020-06-09] MEDS: PARoxetine 20 MG (PAXIL) TAB PO SCH (09:46)
--- NOTE | 2020-06-09 11:03 | Occupational Therapy Eval ---
OT Evaluation-General/PLF Medical Diagnosis Admission Date Jun 08, 2020 at 06:04 Medical Diagnosis: s/p (R) tka Onset Date: Jun 08, 2020 Therapy Diagnosis Therapy Diagnosis: weakness Height/Weight Height (Feet): 5 Height (Inches): 2.00 Weight (Pounds): 156 Weight (Ounces): 0.0 Precautions Precautions/Isolations: Fall Prevention, Standard Precautions Referral Physician: FARAZ Warren Referral Reason: Evaluation/Treatment Medical History Pertinent Medical History: HTN, Hypothroidism Additional Medical History cholecystecotomy, cleft palate surgery, eye surgery, L knee scope Current History s/p R TKA 06/08/20 Social History Home: Single Level Current Living Status: Spouse Entry Into Home: Stairs Without Railing Steps Into Home: 2 ADL-Prior Level of Function SCALE: Activities may be completed with or without assistive devices. 7-Bofhathvbv-kkrmypf completes the activity by him/herself with no assistance from a helper. 5-Set-up or Clean-up Assistance-helper sets up or cleans up; patient completes activity. [place] assists only prior to or following the activity. 4-Supervision or Touching Assistance-helper provides verbal cues and/or touching/steadying and/or contact guard assistance as patient completes activity. Assistance may be provided throughout the activity or intermittently. 3-Partial/Moderate Assistance-helper does LESS THAN HALF the effort. [place] lifts, holds or supports trunk or limbs, but provides less than half the effort. 2-Substantial/Maximal Assistance-helper does MORE THAN HALF the effort. [place] lifts or holds trunk or limbs and provides more than half the effort. 0-Jbjlepsul-ryrart does ALL the effort. Patient does none of the effort to complete the activity. Or, the assistance of 2 or more helpers is required for the patient to complete the activity. If activity was not attempted, code reason: 7-Patient Refused. 9-Not Applicable-not attempted and the patient did not perform the activity before the current illness, exacerbation or injury. 10-Not Attempted due to Environmental Limitations-(lack of equipment, weather restraints, etc.). 88-Not Attempted due to Medical Conditions or Safety Concerns. ADL PLOF Comments Pt reports being independent with ADLs and functional mobility at [facility], no AD/AE. Pt has a walk in shower, she owns a shower chair that she can use at home, but does not currently have it in her shower Self Care: Independent Functional Cognition: Independent DME/Equipment: Bath Chair, Shower OT Current Status Subjective Pt returning to bed with assist of nurse aide after toileting. Reports pain 8/10 while up, 4/10 once seated. Mental Status/Objective Patient Orientation: Person, Place, Time, Situation Attachments: IV Current Glasses/Contacts: Yes (readding) Hearing Aids: Yes (bilateral) Dentures/Partials: No Hand Dominance: Right Upper Extremity ROM WFL, BUE shoulder flexion to approx 150 degrees Upper Extremity Coordination WFL Upper Extremity Sensation WFL, pt denies tingling/numbness Upper Extremity Strength WFL ADL-Treatment Eating (QC): 6 (IND per pt report) Toileting Hygiene (QC): 6 (Pt indicates able to manage hygine and clothing.) Other Treatments Pt returning to bed with supervisor public health nursing present, SBA. Pt states she just completed toileting, able to manage clothing and perform hygiene. OT educated pt on purpose and benefit of OT, she verbalized understanding. She provided informatio n about PLOF and home set up, and participated in UE screen. Pt reports no concerns with completing ADLS upon returning home, feels as though she could take herself to/from the bathroom here without difficulty. OT educated pt on benefits of using shower chair at home in order to decrease pain and energy conservation, as pt states greater pain while standing. Pt verbalizes understan greg, states she has a shower chair at home she can use.OT educated pt on BUE exercises in order to increase BUE strength and activity tolerance, she verbalized and demonstrated understanding, completing x5 reps each of the following: BUE shoulder flexion, elbow flexion/extension, and finger flexion/extension. Pt transferred supine independently. Post tx, pt laying in bed, call light in reach and all needs met. Education OT Patient Education: Correct positioning, Energy conservation, Modified ADL techniques, Progress toward Goal/Update tx plan, Purpose of tx/functional activities, Rehab process Teaching Recipient: Patient Teaching Methods: Discussion Response to Teaching: Verbalize Understanding OT Skilled Nursing Goals [place] Goals Time Frame: Jun 15, 2020 Eating (QC): 6 Oral Hygiene (QC): 6 Toileting Hygiene (QC): 6 Shower/Bathe Self (QC): 6 Upper Body Dressing (QC): 6 Lower Body Dressing (QC): 6 On/Off Footwear (QC): 6 Additional Goals: 1-Demonstrate ADL Tasks, 2-Verbalize Understanding, 3- ImproveStrength/April 1=Demonstrate adherence to instructed precautions during ADL tasks. 2=Patient will verbalize/demonstrate understanding of assistive devices/modifications for ADL. 3=Patient will improve strength/tolerance for activity to enable patient to perform ADL's. OT Education/Plan Problem List/Assessment Assessment: Decreased Activ Tolerance, Impaired I ADL's Pt would benefit from short term skilled OT services in order to increase safety and independence to maximize LOF for safe return home, as well as address any concerns with ADLs pt may have with returning home. Discharge Recommendations Plan/Recommendations: Continue POC Treatment Plan/Plan of Care Patient would benefit from OT for education, treatment and training to promote independence in ADL's, mobility, safety and/or upper extremity function for ADL's. Plan of Care: ADL Retraining, Functional Mobility, UE Funct Exercise/Act Treatment Duration: Jun 15, 2020 Frequency: 5 times per week Estimated Hrs Per Day: .25 hour per day Rehab Potential: Good Time/GCodes Start Time: 10:46 Stop Time: 10:54 Total Time Billed (hr/min): 8 Billed Treatment Time 1, HESHAM KENNEY OT Jun 09, 2020 11:03
[2020-06-09 12:00] VITALS: BP 116/56
--- NOTE | 2020-06-09 13:19 | Physical Therapy Daily Note ---
PT Daily Note-Current Subjective Patient reports 4/10 pain but notes, it is not too bad. Pain noted most with SAQ and Heel Slides. Patient consented to therapy. Appearance Patient left supine in bed, with tray table nearby and call light within reach. in the room. Mental Status Patient Orientation: Normal For Age Attachments: IV Transfers SCALE: Activities may be completed with or without assistive devices. 1-Jxmipxgjtp-vblpqvo completes the activity by him/herself with no assistance from a helper. 5-Set-up or Clean-up Assistance-helper sets up or cleans up; patient completes activity. [place] assists only prior to or following the activity. 4-Supervision or Touching Assistance-helper provides verbal cues and/or touching/steadying and/or contact guard assistance as patient completes activity. Assistance may be provided throughout the activity or intermittently. 3-Partial/Moderate Assistance-helper does LESS THAN HALF the effort. [place] lifts, holds or supports trunk or limbs, but provides less than half the effort. 2-Substantial/Maximal Assistance-helper does MORE THAN HALF the effort. [place] lifts or holds trunk or limbs and provides more than half the effort. 2-Scgevpdrx-qjutze does ALL the effort. Patient does none of the effort to complete the activity. Or, the assistance of 2 or more helpers is required for the patient to complete the activity. If activity was not attempted, code reason: 7-Patient Refused. 9-Not Applicable-not attempted and the patient did not perform the activity before the current illness, exacerbation or injury. 10-Not Attempted due to Environmental Limitations-(lack of equipment, weather restraints, etc.). 88-Not Attempted due to Medical Conditions or Safety Concerns. Roll Left & Right (QC): 6 Sit to Lying (QC): 6 Lying to Sitting/Side of Bed(Q: 6 Sit to Stand (QC): 6 Weight Bearing Right Lower Extremity: Right Weight Bearing/Tolerated Left Lower Extremity: Left Full Weight Bearing Gait Training Does the Patient Walk?: Yes Distance: 600' Walk 10 feet (QC): 6 Walk 50 ft with 2 Turns(QC): 6 Walk 150 ft (QC): 6 Walking 10ft/uneven surface-QC: 6 Gait Assistive Device: FWW Patient demonstrates steady gait with reciprocal gait pattern, and reports no pain with ambulation. Exercises Supine Ex: Heel Slides Supine Reps: 5 Seated Therapy Exercises: Ankle pumps, Long arc quads Seated Reps: 20 Assessment Current Status: Excellent Progress Patient is able to perform functional mobility independently. Plan to assess step navigation tomorrow prior to expected d/c. 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 Operator Goals PT Usp Goals Time Frame: Jun 15, 2020 Roll Left & Right (QC): 6 Sit to Lying (QC): 6 Lying-Sitting on Side/Bed(QC): 6 Sit to Stand (QC): 6 Chair/Sdx-jc-Ewqwn Xfer(QC): 6 Toilet Transfer (QC): 6 Car Transfer (QC): 6 Does the Patient Walk: Yes Walk 10 feet (QC): 6 Walk 50ft with 2 Turns (QC): 6 Walk 150 ft (QC): 6 Walking 10ft on Uneven Surface: 6 1 Step (curb) (QC): 6 4 Steps (QC): 4 12 Steps (QC): 9 Picking up an Object (QC): 6 Does the Pt use WC or Scooter?: No Wheel 50 feet with 2 turns (QC: 9 Type: N/A Wheel 150 feet: 9 Type: N/A PT Plan Problem List Problem List: Safety Treatment/Plan Treatment Plan: Continue Plan of Care Treatment Plan: Bed Mobility, Education, Functional Activity April, Functional Strength, Gait, Safety, Therapeutic Exercise, Transfers Treatment Duration: Jun 15, 2020 Frequency: 11 times per week Estimated Hrs Per Day: .5 hour per day Patient and/or Family Agrees t: Yes Discharge Recommendations Therapy Discharge Recommendati: Home & Family Time/GCodes Time In: 1252 Time Out: 1315 Total Billed Treatment Time: 23 Total Billed Treatment 1 visit: FA: 13' EX: 10' LATASHA VÁSQUEZ PT Jun 09, 2020 13:18
[2020-06-09 16:03] VITALS: BP 120/88
[2020-06-09 19:08] VITALS: BP 143/83
[2020-06-09] MEDS ORDERED: meTOprolol SUCCINATE 100 MG (TOPROL XL) TAB PO SCH (21:00)
--- NOTE | 2020-06-10 00:05 | DISCHARGE SUMMARY ---
DATE OF SERVICE: DIAGNOSES: 1. Right knee primary osteoarthritis. 2. Hypertension. 3. Hyperlipidemia. 4. Hypothyroidism. PROCEDURE: Right total knee arthroplasty. SUMMARY: The patient is a 75-year-old female who was admitted the day of right total knee arthroplasty, which she underwent without complications. Postoperatively, she did very well. At time of discharge, her wound was clean and dry. She had no calf tenderness. Negative Homans sign. She was tolerating a diet well and tolerating pain with oral pain medication. CONDITION AT DISCHARGE: Good. DISCHARGE DIET: Regular. FOLLOWUP: Followup is in three weeks. Home physical therapy has been arranged. DISCHARGE MEDICATIONS: Home medications, Percocet as needed for pain and one aspirin per day for 30 days. ACTIVITIES: Weightbearing as tolerated with a walker. Job ID: [id number] DocumentID: [id number] Dictated Date: 06/09/2020 08:03:58 Home Care Attendant Date: 06/10/2020 00:04:16 Dictated By: ROB JUDD MD
[2020-06-10 00:24] VITALS: BP 157/70
[2020-06-10] MEDS: NS IV 1000 ML 1,000 ML IV SCH (01:24)
[2020-06-10] MEDS: oxyCODONE/APAP 5/325MG (PERCOCET 5) TABLET PO PRN ×3 (01:25→09:15)
[2020-06-10 04:34] VITALS: BP 140/70
[2020-06-10 05:59] LABS: HEMOGLOBIN 8.5 g/dL (11.5-16.0)
[2020-06-10] MEDS: MULTIVIT W/MINERALS TAB (THERAGRAN M) PO SCH (06:25)
[2020-06-10] MEDS ORDERED: LEVOTHYROXINE 75 MCG (LEVOTHROID) TABLET PO SCH (06:30)
--- NOTE | 2020-06-10 07:08 | Progress Note ---
Standard Progress Note Progress Notes/Assess & Plan Date Seen by a Provider: Jun 10, 2020 Time Seen by a Provider: 07:07 Progress/Assessment & Plan post op check no complaints radiographs--HW well positioned without fracture RLE--2 plus DP pulse with brisk cap refill. Intact DF and PF of toes and ankle with intact sensation to light touch throughout s/p RTKA mobilize as able Final Diagnosis no complaints Vital Signs Date Time Temp Pulse Resp B/P (MAP) Pulse Ox O2 Delivery O2 Flow Rate FiO2 06/10/20 06:28 18 06/10/20 04:34 36.1 84 18 140/70 (93) 93 Nasal Cannula 2.00 06/10/20 00:24 36.1 89 18 157/70 (99) 94 Room Air 06/09/20 21:34 Room Air 06/09/20 19:08 37.0 94 18 143/83 (103) 96 Room Air 06/09/20 16:03 36.8 88 20 120/88 (99) 97 Room Air 06/09/20 12:00 36.6 85 20 116/56 (76) 93 Room Air 06/09/20 08:07 Nasal Cannula 2.00 06/09/20 08:00 Room Air 06/09/20 08:00 36.2 87 20 129/75 (93) 93 Room Air I & O 06/10/20 07:00 Intake Total 4270 ml Output Total 700 ml Balance 3570 ml Laboratory Tests Test 06/10/20 05:48 Range/Units Hemoglobin 8.5 L 11.5-16.0 g/dL Hematocrit 26 L 35-52 % RLE incision clean and dry. No calf tenderness. Neg Buck's s/p RTKA doing very well DC after PT today ROB JUDD MD Jun 10, 2020 07:08
[2020-06-10] MEDS ORDERED: morphine INJ 4 MG/ML 1 ML (VIAL/SYRINGE) IVP PRN (07:15)
[2020-06-10 07:55] VITALS: BP 153/72
[2020-06-10] MEDS: ASPIRIN E.C. 81 MG (ECOTRIN) TAB PO SCH (09:14)
[2020-06-10] MEDS: SENNA W/DOCUSATE (SENOKOT S) TABLET PO SCH (09:14)
[2020-06-10] MEDS: ENOXAPARIN 30 MG/0.3 ML (LOVENOX) SYR SC SCH (09:15)
[2020-06-10] MEDS: PARoxetine 20 MG (PAXIL) TAB PO SCH (09:15)
--- NOTE | 2020-06-10 10:03 | Occ Therapy Progress Note ---
Therapy Progress Note Pt laying in bed, states she is planning on discharging from facility today. Pt reports no concerns with her ability to complete ADLs upon discharge. She has been going to the bathroom independently and dressed herself independently today. No further OT services indicated at this time, as pt is independent with ADLs. D/C from OT. 1, visit 5858 HESHAM KYLE OT Jun 10, 2020 10:03
--- NOTE | 2020-06-10 10:29 | Physical Therapy Daily Note ---
PT Daily Note-Current Subjective Patient reports mild, unrated pain in R knee, but notes it "is not too bad." Patient consented to PT. Appearance Patient left supine in bed with call light within reach, and tray table positioned beside her. Mental Status Patient Orientation: Normal For Age Attachments: Polar Pack Transfers SCALE: Activities may be completed with or without assistive devices. 5-Exugxdjqix-zaoupqp completes the activity by him/herself with no assistance from a helper. 5-Set-up or Clean-up Assistance-helper sets up or cleans up; patient completes activity. [place] assists only prior to or following the activity. 4-Supervision or Touching Assistance-helper provides verbal cues and/or touching/steadying and/or contact guard assistance as patient completes activity. Assistance may be provided throughout the activity or intermittently. 3-Partial/Moderate Assistance-helper does LESS THAN HALF the effort. [place] lifts, holds or supports trunk or limbs, but provides less than half the effort. 2-Substantial/Maximal Assistance-helper does MORE THAN HALF the effort. [place] lifts or holds trunk or limbs and provides more than half the effort. 1-Owftynqxu-iucufn does ALL the effort. Patient does none of the effort to complete the activity. Or, the assistance of 2 or more helpers is required for the patient to complete the activity. If activity was not attempted, code reason: 7-Patient Refused. 9-Not Applicable-not attempted and the patient did not perform the activity before the current illness, exacerbation or injury. 10-Not Attempted due to Environmental Limitations-(lack of equipment, weather restraints, etc.). 88-Not Attempted due to Medical Conditions or Safety Concerns. Roll Left & Right (QC): 6 Sit to Lying (QC): 6 Lying to Sitting/Side of Bed(Q: 6 Sit to Stand (QC): 6 Chair/Aup-du-Zpzsz Xfer(QC): 6 Toilet Transfer (QC): 6 Car Transfer (QC): 6 Weight Bearing Right Lower Extremity: Right Weight Bearing/Tolerated Left Lower Extremity: Left Full Weight Bearing Gait Training Does the Patient Walk?: Yes Distance: 600' Walk 10 feet (QC): 6 Walk 50 ft with 2 Turns(QC): 6 Walk 150 ft (QC): 6 Gait Assistive Device: FWW Patient is steady with all gait, demonstrates no joni LOB at any time throughout ambulation. Exercises Seated Therapy Exercises: Long arc quads Seated Reps: 20 Assessment Current Status: Excellent Progress Patient has attained all functional goals, will be d/c home with spouse on this date. PT Multifold Operator Goals Multifold Operator Goals PT Retirement Goals Time Frame: Jun 15, 2020 Roll Left & Right (QC): 6 Sit to Lying (QC): 6 Lying-Sitting on Side/Bed(QC): 6 Sit to Stand (QC): 6 Chair/Hzp-nd-Usjtc Xfer(QC): 6 Toilet Transfer (QC): 6 Car Transfer (QC): 6 Does the Patient Walk: Yes Walk 10 feet (QC): 6 Walk 50ft with 2 Turns (QC): 6 Walk 150 ft (QC): 6 Walking 10ft on Uneven Surface: 6 1 Step (curb) (QC): 6 4 Steps (QC): 4 12 Steps (QC): 9 Picking up an Object (QC): 6 Does the Pt use WC or Scooter?: No Wheel 50 feet with 2 turns (QC: 9 Type: N/A Wheel 150 feet: 9 Type: N/A PT Plan Treatment/Plan Treatment Plan: Discontinue PT, goals met Treatment Plan: Bed Mobility, Education, Functional Activity April, Functional Strength, Gait, Safety, Therapeutic Exercise, Transfers Treatment Duration: Jun 15, 2020 Frequency: 11 times per week Estimated Hrs Per Day: .5 hour per day Patient and/or Family Agrees t: Yes Time/GCodes Time In: 08 Time Out: 0834 Total Billed Treatment Time: 14 Total Billed Treatment 1 visit: FA: LATASHA FROST PT Jun 10, 2020 10:29
[2020-06-10 11:25] VITALS: BP 158/72
--- NOTE | 2020-06-10 12:13 | Progress Note ---
Subjective Date Seen by a Provider: Jun 10, 2020 Time Seen by a Provider: 08:45 Subjective/Events-last exam Fwup Right TKA, HTN, anxiety. Sitting on side of bed--just finished PT. Doing so well gets to go home and feels like she is able to go home. Objective Exam Vital Signs Date Time Temp Pulse Resp B/P (MAP) Pulse Ox O2 Delivery O2 Flow Rate FiO2 06/10/20 09:00 Room Air 06/10/20 07:55 36.7 83 20 153/72 (99) 91 Room Air 06/10/20 06:28 18 06/10/20 04:34 36.1 84 18 140/70 (93) 93 Nasal Cannula 2.00 06/10/20 00:24 36.1 89 18 157/70 (99) 94 Room Air 06/09/20 21:34 Room Air 06/09/20 19:08 37.0 94 18 143/83 (103) 96 Room Air 06/09/20 16:03 36.8 88 20 120/88 (99) 97 Room Air I & O 06/10/20 07:00 Intake Total 4270 ml Output Total 700 ml Balance 3570 ml Capillary Refill : Less Than 3 Seconds General Appearance: No Apparent Distress Neck: Supple Respiratory: Lungs Clear Cardiovascular: Regular Rate, Rhythm Gastrointestinal: normal bowel sounds, non tender, soft Extremity: Non Tender, No Calf Tenderness, No Pedal Edema Neurologic/Psychiatric: Alert, Oriented x3 Skin: Warm/Dry, Other (right knee wound dry and dressing in place with CARMEN hose in place) Results Lab Laboratory Tests 06/10/20 05:48: Hemoglobin 8.5L, Hematocrit 26L Assessment/Plan Assessment/Plan Assess & Plan/Chief Complaint 1. Right TKA--doing well with PT and pain control so home today per ortho 2. HTN--stable 3. Post-op Anemia--will recheck in 1 week in my office PHI GARDNER DO Jun 10, 2020 12:13
== END 2020-06-10 13:11 | disposition home health service (06) | DRG 470 ==
LOC: 4TH 06:04 → SURG 06:05 → 4TH 10:36
PROVIDERS: ADMIT Orthopaedic Surgery; ATTEND Orthopaedic Surgery
PROC: 0SRC0J9 Replacement of Right Knee Joint with Synthetic Substitute, Cemented, Open Approach (ICD-10-PCS; principal; 2020-06-08 07:29)
DX: M17.11 Unilateral primary osteoarthritis, right knee (principal); I10 Essential (primary) hypertension; E78.5 Hyperlipidemia, unspecified; E03.9 Hypothyroidism, unspecified; Z90.49 Acquired absence of other specified parts of digestive tract; F41.9 Anxiety disorder, unspecified; F32.9 Major depressive disorder, single episode, unspecified; Z86.73 Personal history of transient ischemic attack (TIA), and cerebral infarction without residual deficits; D64.9 Anemia, unspecified
CPT/HCPCS: 36415; 73560; 82565; 85014; 85018; 85027; 86850; 86900; 86901; 94664; 94760

== ENCOUNTER → 2021-04-06 | Outpatient (CLI) | payer MEDICARE ==
[~2021-04-06] VITALS: Ht 157.5 cm; Wt 74.8 kg
[~2021-04-06] MED LIST changes: +ACETAMINOPHEN 500 MG TAB (TYLENOL) PO PRN; +CASIRIVIMAB/IMDEVIMAB 1,200 MG in NS (IVPB) 50 ML IV ONE; +EPINEPHrine INJECTION 1 MG/ML AMP IM PRN; +ONDANSETRON 4 MG/2 ML (SDV) Z0FRAN IV PRN; +diphenhydrAMINE 50 MG/ML INJ (BENADRYL) IV PRN
[2021-04-06 10:04] VITALS: BP 157/77
[2021-04-06 11:15] VITALS: BP 151/72
== END ==
LOC: INFUSION 09:40
PROVIDERS: ATTEND Nurse Practitioner Family
DX: U07.1 COVID-19 (principal)

== ENCOUNTER → 2021-05-22 | Outpatient (CLI) | payer MEDICARE ==
[~2021-05-22] MED LIST changes: -ACETAMINOPHEN 500 MG TAB (TYLENOL) PO PRN; -CASIRIVIMAB/IMDEVIMAB 1,200 MG in NS (IVPB) 50 ML IV ONE; -EPINEPHrine INJECTION 1 MG/ML AMP IM PRN; -ONDANSETRON 4 MG/2 ML (SDV) Z0FRAN IV PRN; -diphenhydrAMINE 50 MG/ML INJ (BENADRYL) IV PRN
--- NOTE | 2021-05-22 16:32 | Diagnostic Imaging Report ---
INDICATION: Cough and wheezing. EXAMINATION: PA and lateral chest. FINDINGS: The heart size and pulmonary vascularity are normal. The lungs are clear. There are no effusions or pneumothoraces. IMPRESSION: No acute abnormalities in the chest. Dictated by: Dictated on workstation # [id number]
== END ==
LOC: RAD 14:59
PROVIDERS: ATTEND Family Medicine
DX: R05.9 Cough, unspecified (principal); R06.2 Wheezing
CPT/HCPCS: 71046

== ENCOUNTER → 2021-09-25 | Outpatient (CLI) | payer MEDICARE ==
[~2021-09-25] MED LIST changes: -FENO134C PO; +FENO134C21 PO; +RT-ALBUTEROL SULF 2.5 MG/3 ML PRE-MIX VIAL INH ONE
--- NOTE | 2021-09-25 14:05 | Diagnostic Imaging Report ---
Indication: Cough PA and lateral views of the chest obtained with comparison made to study of 05/22/2021 FINDINGS: Heart size and pulmonary vascularity are within normal limits, and the lungs are clear, bilaterally. IMPRESSION: Unremarkable chest. Dictated by: Dictated on workstation # [id number]
== END ==
LOC: RT 12:27
PROVIDERS: ATTEND Family Medicine
DX: R05.9 Cough, unspecified (principal)
CPT/HCPCS: 71046; 94060; 94726; 94729

== ENCOUNTER 2021-12-09 11:01 | Emergency (ER) | payer MEDICARE ==
[~2021-12-09] VITALS: Ht 157.5 cm; Wt 72.6 kg
[~2021-12-09 11:01] MED LIST changes: -RT-ALBUTEROL SULF 2.5 MG/3 ML PRE-MIX VIAL INH ONE
--- NOTE | 2021-12-09 12:13 | ED Lower Extremity ---
General Chief Complaint: Trauma-Non Activation Stated Complaint: FALL/FACIAL INJURIES Nursing Triage Note: pt ambulatory to room. pt states she fell from a platform about 4 ft high yesterday evening, landed on dirt and grass. pt has abrasions to bridge of nose and upper lip, swelling in right hand. pt is unsure if her hand or face hit the ground first. pt denies LOC. pt states she had a nosebleed but was able to control it quickly. pt states she takes 1 baby ASA daily and no other blood thinners. pt denies neck or back pain. pt A&Ox4, speech normal (JONAH WOODWARD APRN) History of Present Illness Date Seen by Provider: Dec 09, 2021 Time Seen by Provider: 12:05 Initial Comments Patient is a 76 yo F who presents to the ED for evaluation after she fell from a platform while trimming her bushes yesterday evening. She states she landed on her face and hit her R hand on the ground. She denies any LOC. States she has some mild pain in her face and worse pain in her R hand. She states he came to the ED at the request of her daughter who in an [facility]. She has not taken anything for the symptoms today. Location Injury Occurred: home Onset: yesterday Method of Injury: fell (JONAH WOODWARD APRN) Allergies and Home Medications Allergies Coded Allergies: No Known Drug Allergies (Verified , 01/10/09) Patient Home Medication List Home Medication List Reviewed: Yes (JONAH WOODWARD APRN) Aspirin (Aspirin) 81 Mg Tab.chew, 81 MG PO DAILY, (Reported) Entered as Reported by: NIKI BAIRES on 06/01/20 1014 Fenofibrate,Micronized (Fenofibrate) 134 Mg Capsule, 134 MG PO DAILY, (Reported) Entered as Reported by: NIKI BAIRES on 06/11/18 1445 Levothyroxine Sodium (Synthroid) 75 Mcg Tablet, 75 MCG PO DAILY, (Reported) Entered as Reported by: NIKI BAIRES on 06/11/18 1445 Metoprolol Succinate (Metoprolol Succinate) 100 Mg Tab.er.24h, 100 MG PO HS, (Reported) Entered as Reported by: NIKI BAIRES on 06/11/18 1445 Mv-Mn/Folic Acid/Calcium/Vit K (Women's 50 Plus Multivit Tab) 1 Each Tablet, 1 EACH PO DAILY, (Reported) Entered as Reported by: NIKI BAIRES on 06/01/20 1014 Paroxetine HCl (Paroxetine HCl) 20 Mg Tablet, 20 MG PO DAILY, (Reported) Entered as Reported by: NIKI BAIRES on 06/11/18 1445 Pravastatin Sodium (Pravastatin Sodium) 40 Mg Tablet, 40 MG PO HS, (Reported) Entered as Reported by: NIKI BAIRES on 06/11/18 1445 Triamterene/Hydrochlorothiazid (Triamterene-Hctz 37.5-25 mg Tb) 1 Each Tablet, 1 EACH PO DAILY, (Reported) Entered as Reported by: NIKI BAIRES on 06/11/18 1445 Review of Systems Constitutional: no symptoms reported EENTM: other (facial swelling and abrasion) Respiratory: no symptoms reported Cardiovascular: no symptoms reported Gastrointestinal: no symptoms reported Genitourinary: no symptoms reported (JONAH WOODWARD APRN) Past Nxdigtr-Jvcdkz-Nxupwe Hx Patient Social History Tobacco Use?: No Use of E-Cig and/or Vaping dev: No Substance use?: No Alcohol Use?: No (JONAH WOODWARD APRN) Immunizations Up To Date Influenza Vaccine Up-to-Date: Yes; Up-to-Date (JONAH WOODWARD APRN) Seasonal Allergies Seasonal Allergies: Yes (JONAH WOODWARD APRN) Past Medical History Surgeries: Yes ( CLEFT PALATE) Appendectomy, Eye Surgery, Gallbladder, Hysterectomy Respiratory: No Cardiac: Yes High Cholesterol, Hypertension Neurological: Yes TIA Reproductive Disorders: No Genitourinary: No UTI-Chronic Gastrointestinal: No Musculoskeletal: Yes Arthritis Endocrine: Yes Hypothyroidsim HEENT: Yes Cataract Hearing Impairment: Hard of Hearing, Hearing Aide Right, Hearing Aide Left Cancer: No Psychosocial: Yes Anxiety, Depression Integumentary: No Blood Disorders: No (JONAH WOODWARD APRN) Physical Exam Vital Signs Vital Signs - First Documented 12/09/21 11:16 Temp 36.8 Pulse 65 Resp 16 B/P (MAP) 177/81 (113) Pulse Ox 97 (LETTY REID MD) Vital Signs Capillary Refill : (JONAH WOODWARD APRN) Height, Weight, BMI Height: 5'2.00" Weight: 156lbs. 0.0oz. 70.772849on; 29.00 BMI Method:Stated General Appearance: WD/WN, no apparent distress HEENT: PERRL/EOMI, normal ENT inspection, TMs normal, pharynx normal Neck: non-tender, full range of motion, supple, normal inspection Cardiovascular: normal peripheral pulses, regular rate, rhythm, no edema, no gallop, no JVD, no murmur Respiratory: chest non-tender, lungs clear, normal breath sounds, no respiratory distress, no accessory muscle use Gastrointestinal: normal bowel sounds, non tender, soft, no organomegaly, no pulsatile mass Back: normal inspection, no CVA tenderness, no vertebral tenderness Neurologic/Psychiatric: chemistry technologist II-XII nml as tested, no motor/sensory deficits, alert, normal mood/affect, oriented x 3 Skin: normal color, warm/dry pt with swelling noted to her R hand overlying the dorsum of the third MCP joint; pt with midface swelling and abrasion without instability; no dental malocclusion or other intraoral injury noted (JONAH WOODWARD APRN) Progress/Results/Core Measures Results/Orders Medications Given in ED Current Medications Medications Dose Ordered Sig/Wong Route Start Time Stop Time Status Last Admin Dose Admin Ibuprofen 600 mg ONCE ONCE PO 12/09/21 12:15 12/09/21 12:16 DC 12/09/21 12:24 600 MG (LETTY REID MD) Vital Signs/I&O 12/09/21 12/09/21 11:16 13:46 Temp 36.8 36.8 Pulse 65 67 Resp 16 16 B/P (MAP) 177/81 (113) 148/78 Pulse Ox 97 99 (LETTY REID MD) Blood Pressure Mean: 113 Progress Progress Note : Progress Note Patient is nontoxic and well hydrated on exam. Vital signs are reassuring. No focal neurologic deficits noted. No midface instability appreciated. Xrays of the R hand are acutely negative for fracture. CT of the face acutely negative for osseous injury. Will d/c home with recs for supportive care and follow-up with PCP for persistent symptoms. Return precautions for urgent symptomology discussed. Patient verbalized understanding. (JONAH WOODWARD APRN) Departure Impression Primary Impression: Fall Qualified Codes: W19.XXXA - Unspecified fall, initial encounter Additional Impressions: Facial abrasion Qualified Codes: S00.81XA - Abrasion of other part of head, initial encounter Contusion of right hand Qualified Codes: S60.221A - Contusion of right hand, initial encounter Disposition: 01 HOME, SELF-CARE Condition: Stable Departure-Patient Inst. Decision time for Depature: 13:35 (JONAH WOODWARD APRN) Referrals: PHI GARDNER DO (PCP/Family) Primary Care Physician Patient Instructions: Abrasions ED, Contusion (DC) ATTENDING PHYSICIAN NOTE: I was physically present as attending physician in the emergency department during the care of this patient, but I was not directly involved in the decision making or delivery of care for this patient. (LETTY REID MD) JONAH WOODWARD APRN Dec 09, 2021 12:13 LETTY REID MD Dec 09, 2021 20:03
[2021-12-09] MEDS ORDERED: IBUPROFEN 600 MG (MOTRIN) TAB PO ONE (12:15)
--- NOTE | 2021-12-09 12:29 | Diagnostic Imaging Report ---
EXAMINATION: Right hand radiographs, 3 views. COMPARISON: None. HISTORY: 76-year-old female, right hand pain. FINDINGS: There is no identified acute fracture. There is no identified dislocation. There is chondrocalcinosis. There is multifocal advanced arthritis. There is severe joint space loss of the first metacarpophalangeal joint. The first proximal phalanx is volarly subluxed at this articulation. There is also severe joint space loss of the second and third metacarpophalangeal joints. There are osteophytes of the third metacarpal. There is also proximal and distal interphalangeal arthritis of the second through fifth fingers. IMPRESSION: 1. No identified acute bony abnormality of the right hand. 2. 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 There also may be superimposed findings of osteoarthritis. Dictated by: Dictated on workstation # [id number]
--- NOTE | 2021-12-09 12:31 | Diagnostic Imaging Report ---
PROCEDURE: CT maxillofacial without contrast. TECHNIQUE: Multiple contiguous axial images were obtained through the facial bones without the use of intravenous contrast. Auto Exposure Controls were utilized during the CT exam to meet ALARA standards for radiation dose reduction. INDICATION: Facial pain and swelling. FINDINGS: The frontal sinuses, sphenoid sinuses and ethmoid air cells are clear. The maxillary sinuses are clear. The osteomeatal complexes are patent. Defect in the hard palate extending into the oropharyngeal cavity. The bone on both sides of this defects appears well corticated. This may be an old postsurgical finding although there is abnormal soft tissue within the defect. This appears unchanged when compared with a prior CT from 2016 at which time it was also present. The nasal bones intact. The zygomatic arches are intact. Mandibular alignment is normal. Lamina papyracea and orbital floors are intact. 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 This connects the nasal cavity to the anterior oropharynx. This may be congenital or postsurgical. This appears relatively unchanged when compared with a prior CT from 2016. No other acute displaced facial fractures. Dictated by: Dictated on workstation # [id number]
[2021-12-09 13:46] VITALS: BP 148/78
== END 2021-12-09 13:48 | disposition home or self-care (01) ==
LOC: EDUNIT# 11:01 → ER 11:03
DX: S60.221A Contusion of right hand, initial encounter (principal); S00.31XA Abrasion of nose, initial encounter; S00.511A Abrasion of lip, initial encounter; W17.89XA Other fall from one level to another, initial encounter
CPT/HCPCS: 70486; 73130

== ENCOUNTER → 2022-09-07 | Outpatient (CLI) | payer MEDICARE, SELFPAY ==
--- NOTE | 2022-09-10 11:47 | Diagnostic Imaging Report ---
CT CARDIAC CALCIUM SCORE INDICATION: Coronary artery disease screening COMPARISON: None available. TECHNIQUE: Limited noncontrast CT of the chest. Automatic exposure controls were utilized to keep dose as low as reasonably achievable. FINDINGS: Total coronary calcium score is 136. This places the patient in the 58th percentile for age. Visible lungs are clear. Heart is borderline enlarged. Mild calcifications of the thoracic aorta. Small sliding-type hiatal hernia. IMPRESSION: 1. No incidental abnormality that would require further workup. 2. Total coronary calcium score is 136. Dictated by: Dictated on workstation # [id number]
== END ==
LOC: RAD 10:32
PROVIDERS: ATTEND Family Medicine
DX: Z13.6 Encounter for screening for cardiovascular disorders (principal)
CPT/HCPCS: 75571